=== PATIENT | female | born 1995 | race American Indian/Alaskan Native ===

== ENCOUNTER 2017-06-02 15:52 | Outpatient (CLI) | payer MEDICAID ==
[2017-06-02] MEDS ORDERED: LACTATED RINGERS 1,000 ML IV ONE (17:11)
[2017-06-02] MEDS ORDERED: LACTATED RINGERS 1,000 ML ONE (17:16)
--- NOTE | 2017-06-02 17:55 | Ultrasound Report ---
FINAL REPORT PROCEDURE: US OB LIMITED TECHNIQUE: Real-time transvaginal sonography of the placenta was performed. HISTORY: Abdominal trauma COMPARISON: No prior studies are available for comparison. FINDINGS: There is a single intrauterine gestation in cephalic presentation. Placenta is anterior and grade 1. No sonographic evidence of abruption is identified. Amniotic fluid index measures 9.7 centimeters. heart rate is 137 beats per minute. IMPRESSION: Unremarkable sonographic appearance of the placenta
[2017-06-02 18:33] VITALS: BP 99/55
[2017-06-02 21:01] LABS: Hematocrit 35.5 % (30.3-42.9); Mean Corpuscular HGB Conc 34 % (30-34); Mean Corpuscular Hemoglobin 31 pg (28-32); Mean Corpuscular Volume 93 fl (79-97); Platelet Count 228 K/mm3 (140-440); Red Blood Count 3.82 M/mm3 (3.65-5.03); Red Cell Distribution Width 14.3 % (13.2-15.2)
== END 2017-06-02 21:59 | disposition home or self-care (01) ==
LOC: TRG 15:52 → EEVIPCON 15:52 → LD 16:28 → TRG 21:59
PROVIDERS: ATTEND Obstetrics & Gynecology
DX: Z34.93 Encounter for supervision of normal pregnancy, unspecified, third trimester (principal); Z3A.34 34 weeks gestation of pregnancy
CPT/HCPCS: 36415; 59025; 76815; 85027; 86850; 86900; 86901; 96360; 96361; J7120

== ENCOUNTER 2017-07-06 13:07 | Outpatient (CLI) | payer MEDICAID ==
--- NOTE | 2017-07-06 13:57 | Event Note ---
Date: 07/06/17 patient c/o decreased fm and leaking water type fluid from vagina x 24h. Perineum completely dry, patient did not wear pad to office and clothing is dry. no fluid noted after patient coughed several times. SVE unchanged from office, bag noted. Will get BPP/RADHA and if normal may be d/c'd home to f/u in office with regular scheduled appointment Sunday.
--- NOTE | 2017-07-06 15:46 | Ultrasound Report ---
ULTRASOUND BIOPHYSICAL PROFILE: History: well being Technique: Transabdominal ultrasound with Doppler interrogation. 2 - breathing movements 2 - movements 2 - posture and tone 2 - Qualitative amniotic fluid volume 8 - TOTAL SCORE OF POSSIBLE 8 Heart Rate (bpm) 145
--- NOTE | 2017-07-06 15:46 | Ultrasound Report ---
ULTRASOUND OB LIMITED History: well being Technique: Transabdominal ultrasound with Doppler interrogation. Gestation: Single Position: Cephalic Amniotic Fluid: Normal RADHA = 10.3 cm Heart Rate: 132 BPM
== END 2017-07-06 15:10 | disposition home or self-care (01) ==
LOC: TRG 13:07
PROVIDERS: ATTEND Obstetrics & Gynecology
DX: O36.8130 Decreased fetal movements, third trimester, not applicable or unspecified (principal); O42.02 Full-term premature rupture of membranes, onset of labor within 24 hours of rupture; Z3A.39 39 weeks gestation of pregnancy
CPT/HCPCS: 59025; 76815; 76819

== ENCOUNTER 2017-07-06 23:32 | Inpatient (IN) | payer MEDICAID ==
[2017-07-07] MEDS ORDERED: LACTATED RINGERS 1,000 ML ONE (00:14)
[2017-07-07] MEDS ORDERED: PITOCin/NS 20 UNIT/1000ML DRIP 20,000 MILLIUNITS/1,000 ML BAG IV ONE (00:15)
[2017-07-07] MEDS ORDERED: XYLOCAINE 2% INFILTRATI ONE ×2 (00:15→00:55)
--- NOTE | 2017-07-07 00:50 | History and Physical Report ---
History of Present Illness Date of examination: 07/07/17 Date of admission: 07/06/17 23:55 Chief complaint: active labor, SROM @ 2200 History of present illness: EDC Confirmation: 07/09/2017 Past History : 1 Term Births: 0 Premature Births: 0 Living Children: 0 Para: 0 Mult. Births: 0 Prev : 0 Prev. attempt? 0 Aborta: 0 Elect. Ab: 0 Spont. Ab: 0 Ectopics: 0 Past Medical History: Reviewed history from 06/09/2016 and no changes required: NEG Negative Past Medical History Past Surgical History: Reviewed history from 06/09/2016 and no changes required: Negative Past Surgical History Family History Summary: Other family member - Has No Family History of Ovarvian Cancer - Entered On: Other family member - Has No Family History of Colon Cancer - Entered On: 2016 Other family member - Has No Family History of Breast Cancer - Entered On: 2016 Other family member - Has Family History of Hypertension - Entered On: 11/21/2016 Other family member - Has Family History of Diabetes - Entered On: 11/21/2016 Other family member - Has Family History of CVA or Stroke - Entered On: 2016 General Comments - FH: Neg Social History: Patient is single engaged to a 30 yo man [place] Smoking History: Patient currently smokes every day. Risk Factors: Smoked Tobacco Use: Current every day smoker Cigarettes: Yes -- 1/2 pack(s) per day, Year started: 2010 Counseled to quit/cut down: yes Drug use: yes Substance: marijuana HIV high-risk behavior: no Alcohol use: yes Drinks per day: social Dietary Counseling: pn yes Past Medical History Surgery (Non-study director): Negative Past Surgical History Abnormal PAP: negative CRISTIAN Exposure: negative Infertility: negative Uterine Anomaly: negative Uterine Surgery (not C/S): negative Social Hx: Patient is single engaged to a 30 yo man [place] Smoking History: Patient currently smokes every day. Infection History Hx of STD: chlamydia HIV Risk Eval: no Hepatitis B Risk Eval: low risk Personal hx. of genital herpes: no Partner hx. of genital herpes: no Genetic History Congenital Heart Defect: Mom: no Dad: no Magdalene Disease: Mom: no Dad: no Thalassemia Mom: no Dad: no Neural Tube Defect Mom: no Dad: no Down's Syndrome Mom: no Dad: no Esa-Sachs Mom: no Dad: no Sickle Cell Disease/Trait Mom: yes Dad: no Comments: uncle Hemophilia Mom: no Dad: no Muscular Dystrophy Mom: no Dad: no Cystic Fibrosis Mom: no Dad: no Mcdowell Chorea Mom: no Dad: no Mental Retardation Mom: no Dad: no Fragile X Mom: no Dad: no Other Genetic/Chromosomal Disorder Mom: no Dad: no Child w/other defect Mom: no Dad: no Enviromental Exposures Xray Exposure: no Medication, drug, or alcohol use since LMP: yes Chemical/Other Exposure: no Exposure to Cat Liter: no Active Medications (reviewed today): FORMULA 27-1 MG ORAL TABS ( VIT-FE FUMARATE-FA) 1 po q day as directed Current Allergies (reviewed today): No known allergies Past History Past Medical History: other (see HPI) Past Surgical History: other (see HPI) - Obstetrical History Expected Date of Delivery: 07/09/17 Actual Gestation: 39 Week(s) 5 Day(s) : 1 Para: 0 Hx # Term Pregnancies: 0 Number of Pregnancies: 0 Spontaneous Abortions: 0 Induced : 0 Number of Living Children: 0 Medications and Allergies Allergies Allergy/AdvReac Type Severity Reaction Status Date / Time No Known Allergies Allergy Verified 06/02/17 16:18 Review of Systems All systems: negative - Vital Signs Vital signs: Vital Signs Pulse BP 82 112/62 07/06/17 23:53 07/06/17 23:53 Temp Pulse Resp BP Pulse Ox 97.2 F L 115 H 14 127/80 07/07/17 00:30 07/07/17 00:30 07/07/17 00:30 07/07/17 00:30 - Physical Exam Breasts: Positive: normal Cardiovascular: Regular rate Lungs: Positive: Clear to auscultation, Normal air movement Abdomen: Positive: normal appearance, soft, normal bowel sounds Genitourinary (Female): Positive: normal external genitalia, normal perenium Vulva: both: normal Vagina: Positive: normal moisture Uterus: Positive: normal size, normal contour Anus/Rectum: Positive: normal perianal skin Extremities: Positive: normal - Obstetrical FHR: category 1 Uterine Contraction Monitor Mode: External Cervical Dilatation: 9.5 Cervical Effacement Percentage: 100 station: 0 Uterine Contraction Frequency (min): 2-3 Uterine Contraction Duration: 60 Uterine Contraction Pattern: Regular Uterine Tone Measurement Phase: Contraction Uterine Contraction Intensity: Strong/Firm Results All other labs normal. Assessment and Plan 21y/o @ 39+5 weeks, arrived to L&D in active labor. GBS negative. Admission orders in EMR. Anticipate - Patient Problems (1) 39 weeks gestation of Current Visit: Yes Status: Acute (2) Active labor at term Current Visit: Yes Status: Acute
[2017-07-07] MEDS ORDERED: MINERAL OIL PO PRN (00:55)
[2017-07-07] MEDS ORDERED: ePHEDrine SULFATE IV PRN (00:55)
[2017-07-07] MEDS ORDERED: BRETHINE SUB-Q PRN (00:55)
[2017-07-07] MEDS ORDERED: PITOCin/NS 20 UNIT/1000ML DRIP 20 UNITS/1,000 ML BAG IV SCH (01:00)
[2017-07-07 01:11] LABS: Hematocrit 39.6 % (30.3-42.9); Hemoglobin 13.4 gm/dl (10.1-14.3); Mean Corpuscular HGB Conc 34 % (30-34); Mean Corpuscular Hemoglobin 31 pg (28-32); Mean Corpuscular Volume 92 fl (79-97); Platelet Count 263 K/mm3 (140-440); Red Blood Count 4.31 M/mm3 (3.65-5.03); Red Cell Distribution Width 13.9 % (13.2-15.2)
[2017-07-07] MEDS ORDERED: SUBLIMAZE ONE (01:12)
[2017-07-07] MEDS ORDERED: SUBLIMAZE IV ONE (01:18)
[2017-07-07] MEDS: LACTATED RINGERS 1,000 ML IV SCH ×2 (01:29→02:18)
--- NOTE | 2017-07-07 03:01 | Anesthesia Consultation ---
Anesthesia Consult and Med Hx Date of service: 07/07/17 - Airway Anesthetic Teeth Evaluation: Good ROM Head & Neck: Adequate Mental/Hyoid Distance: Adequate Mallampati Class: Class I Intubation Access Assessment: Good - Pulmonary Exam CTA: Yes - Cardiac Exam Cardiac Exam: RRR - Pre-Operative Health Status ASA Pre-Surgery Classification: ASA1 Proposed Anesthetic Plan: Epidural (CSE), Spinal - Pulmonary Hx Asthma: No - Cardiovascular System Hx Hypertension: No - Central Nervous System Hx Seizures: No Hx Psychiatric Problems: No - Endocrine Hx Renal Disease: No Hx Hypothyroidism: No Hx Hyperthyroidism: No - Hematic Hx Anemia: No Hx Sickle Cell Disease: No - Other Systems Hx Alcohol Use: No
--- NOTE | 2017-07-07 03:02 | Anesthesia Day of Surgery ---
Anesthesia Day of Surgery - Day of Surgery Patient Examined: Yes Patient H&P Reviewed: Yes Patient is NPO: Yes
--- NOTE | 2017-07-07 03:51 | Procedure Note ---
OB Delivery Note - Delivery Date of Delivery: 07/07/17 ( male) Water Treatment Plant Engineer: ALL MCCOY Estimated blood loss: 200cc - Vaginal Delivery presentation: vertex Delivery position: OA Intrapartum events: none Delivery induction: none Delivery monitor: external FHT, external uterine Route of delivery: Delivery placenta: spontaneous Delivery cord: 3 umbilical vessels Episiotomy: none Delivery laceration: none Anesthesia: epidural Delivery comments: Male del over intact perineum, OA with a rotation to SUSIE. placed on mother's abd skin to skin, 3 vessel cord clamped and cut. cord blood collected. placenta del intact and completed. no lacerations to repair, fundus firm, bleeding scant. ELB 200, apgars 8/9, wt 7#0. Mother and baby remain LDR stable. - Infant A at 1 minute: 8 at 5 minutes: 9 Gender: Male (7#)
[2017-07-07] MEDS ORDERED: BENADRYL PO PRN (06:00)
[2017-07-07] MEDS ORDERED: DULCOLAX PR PRN (06:00)
[2017-07-07] MEDS ORDERED: LANSINOH TP PRN (06:00)
[2017-07-07] MEDS ORDERED: TUCKS PAD TP PRN (06:00)
[2017-07-07] MEDS ORDERED: ZOFRAN IV PRN (06:00)
[2017-07-07] MEDS ORDERED: MILK OF MAGNESIA PO PRN (06:00)
[2017-07-07] MEDS ORDERED: TYLENOL PO PRN (06:00)
[2017-07-07] MEDS ORDERED: PHENERGAN PO PRN (06:00)
[2017-07-07] MEDS ORDERED: PERCOCET 5/325 PO PRN (06:00)
[2017-07-07] MEDS ORDERED: SODIUM CHLORIDE FLUSH SYRINGE 10 ML IV PRN (06:00)
[2017-07-07] MEDS: MOTRIN PO SCH ×3 (07:01→18:23)
[2017-07-07] MEDS: PRENATAL VITAMIN PO SCH (11:00)
[2017-07-07] MEDS: COLACE PO SCH ×2 (11:00→22:47)
--- NOTE | 2017-07-07 11:18 | Event Note ---
Date: 07/07/17 stable pp, VSS, mod lochia G1. O pos, GBS neg
[2017-07-07 17:05] LABS: Hematocrit 36.7 % (30.3-42.9); Hemoglobin 12.5 gm/dl (10.1-14.3)
[2017-07-08] MEDS: MOTRIN PO SCH ×3 (05:53→09:57)
[2017-07-08] MEDS ORDERED: BOOSTRIX IM ONE (06:00)
[2017-07-08] MEDS: COLACE PO SCH (09:57)
[2017-07-08] MEDS: PRENATAL VITAMIN PO SCH (10:13)
--- NOTE | 2017-07-08 12:06 | Discharge Summary ---
Providers - Providers Date of Admission: 07/06/17 23:55 Date of discharge: 07/08/17 Attending physician: JESUS ULLOA 07/07/17 06:00 Consult to Pet Sitter [CONS] Routine Reason For Exam: assistance with , SNS Primary care physician: JESUS ULLOA Hospitalization Reason for admission: active labor Delivery: Episiotomy: none Laceration: none Other procedures: none complications: none Discharge diagnosis: IUP at term delivered [place] baby: male Pertinent studies: Discharge hematocrit 36. Maternal blood type O positive Hospital course: It well . Bottle feeding Condition at discharge: Good Disposition: DC-01 TO HOME OR SELFCARE - Discharge Diagnoses (1) (normal spontaneous vaginal delivery) Status: Acute (2) 39 weeks gestation of Status: Acute Plan - Discharge Medications Prescriptions: Ibuprofen [Motrin 800 MG tab] 800 mg PO Q8HR PRN #30 tablet PRN Reason: Pain Lidocain2.5%/Prilocai2.5% [Emla] 5 gm TP ONCE PRN #1 tube PRN Reason: Pain - Provider Discharge Summary Activity: routine, no sex for 6 weeks, no heavy lifting 4 weeks, no strenuous exercise Diet: routine Instructions: routine Additional instructions: [] Smoking cessation referral if applicable(refer to patient education folder for contact #) [] Refer to [facility]'s [facility] Booklet Call your doctor immediately for: * Fever > 100.5 * Heavy vaginal bleeding ( >1 pad per hour) * Severe persistent headache * Shortness of breath * Reddened, hot, painful area to leg or breast * Drainage or odor from incision. * Keep incision clean and dry at all times and follow doctor's instructions regarding bathing/showering - Follow up plan Follow up: JESUS ULLOA MD [Primary Care Provider] - 7 Days
[2017-07-08 15:50] VITALS: BP 116/83
== END 2017-07-08 16:10 | disposition home or self-care (01) | DRG 775 ==
LOC: TRG 23:32 → LD 23:55 → OB 07-07 05:38
PROVIDERS: ADMIT Obstetrics & Gynecology; ATTEND Obstetrics & Gynecology
PROC: 10E0XZZ Delivery of Products of Conception, External Approach (ICD-10-PCS; principal; 2017-07-07)
PROC: 3E0R3BZ Introduction of Anesthetic Agent into Spinal Canal, Percutaneous Approach (ICD-10-PCS; 2017-07-07)
PROC: 00HU33Z Insertion of Infusion Device into Spinal Canal, Percutaneous Approach (ICD-10-PCS; 2017-07-07)
DX: O99.334 Smoking (tobacco) complicating childbirth (principal); F17.210 Nicotine dependence, cigarettes, uncomplicated; Z3A.39 39 weeks gestation of pregnancy; Z37.0 Single live birth
CPT/HCPCS: 36415; 85014; 85018; 85027; 86592; 86850; 86900; 86901; J2590; J3010; J7120

== ENCOUNTER 2019-08-22 11:46 | Outpatient (CLI) | payer OTHER ==
--- NOTE | 2019-08-22 12:38 | Event Note ---
Date: 08/22/19 (I'm bleeding) 23 y.o. @ 35 wks with c/o vaginal bleeding for the last week in a half. Denies any sexual intercourse. Ultrasound ordered for placental location, which was reported at posterior and fundal. Exam revealed pinkish to brown discharge on exam glove. Cervical exam cl/th/hi. monitor strip at this time is category 1 with no ctxs noted. Explained this findings to the patient and that at this time no concern for labor. Reviewed with pt s/sx of labor and when to come back to triage for evaluation. Pt continues to deny ctxs, LOF. These finding were relayed to Dr. Godinez. Pt to be discharged home with strict labor precautions and follow up in office.
[2019-08-22 13:09] LABS: Bacteria,Urine 1+ /HPF (Negative); Bilirubin,Urine NEG (Negative); Blood,Urine MOD (Negative); Color,Urine Yellow (Yellow); Mucus,Urine FEW /HPF; Protein,Urine <15 mg/dL mg/dL (Negative); Urobilinogen,Urine < 2.0 mg/dL (<2.0)
[2019-08-22 13:37] VITALS: BP 111/63
--- NOTE | 2019-08-22 15:19 | Ultrasound Report ---
US OB LIMITED INDICATION / CLINICAL INFORMATION: Placental location and RADHA. COMPARISON: None available. FINDINGS: There is a single intrauterine . presentation is cephalic. The heart rate is 131 bpm. The placenta is located in the posterior fundus, is grade 2 and is free of the os. Amniotic flu id volume is normal with an RADHA of 8.7 cm and the largest pocket measuring 3.5 cm. Signer Name: Umberto Landin MD Signed: 08/22/2019 3:15 PM Workstation Name: [id number]
== END 2019-08-22 14:25 | disposition home or self-care (01) ==
LOC: APU 11:46 → TRG 11:46
PROVIDERS: ATTEND Obstetrics & Gynecology
DX: O46.8X3 Other antepartum hemorrhage, third trimester (principal); Z3A.35 35 weeks gestation of pregnancy
CPT/HCPCS: 59025; 76815; 81001; 87086

== ENCOUNTER 2019-09-21 07:58 | Outpatient (CLI) | payer OTHER ==
[2019-09-21 08:19] VITALS: BP 115/60
[2019-09-21] MEDS ORDERED: LACTATED RINGERS 1,000 ML IV ONE (08:30)
[2019-09-21] MEDS ORDERED: LACTATED RINGERS 1,000 ML ONE (08:31)
[2019-09-21 09:16] LABS: Basophils % (Auto) 0.6 % (0.0-1.8); Eosinophils # (Auto) 0.1 K/mm3 (0.0-0.4); Eosinophils % (Auto) 1.8 % (0.0-4.3); Hematocrit 31.4 % (30.3-42.9); Hemoglobin 10.3 gm/dl (10.1-14.3); Lymphocytes # (Auto) 1.7 K/mm3 (1.2-5.4); Lymphocytes % (Auto) 25.5 % (13.4-35.0); Mean Corpuscular HGB Conc 33 % (30-34); Mean Corpuscular Volume 90 fl (79-97); Monocytes # (Auto) 0.7 K/mm3 (0.0-0.8); Monocytes % (Auto) 10.2 % (0.0-7.3); Platelet Count 271 K/mm3 (140-440); Red Blood Count 3.49 M/mm3 (3.65-5.03); Red Cell Distribution Width 15.1 % (13.2-15.2)
--- NOTE | 2019-09-21 09:53 | Event Note ---
Date: 09/21/19 (r/o SROM) Pt is a 23 y.o. @ 39+ weeks with c/o SROM @ 0700. States that the fluid was clear. During triage evaluation no further LOF noted. Denies vag bleeding, ctxs. Exam revealed no pooling, nitrazine negative. RADHA WNL, vertex presentation. Explained these findings to the patient. Pt states that she did "leak a little before my water actually broke with my last ". Strict labor precautions given to patient. She was discharged home from triage in stable condition. Category 1 heart rate tracing with irregular ctxs noted on monitor.
--- NOTE | 2019-09-21 10:01 | Ultrasound Report ---
Limited obstetrical ultrasound INDICATION: , evaluation of presentation and fluid volume Well-developed term intrauterine is seen. Fetus is in a cephalic position. cardiac ex tremity was documented with heart rate of 137 bpm. Amniotic fluid volume was assessed with an A FI of the lower end of the normal range at 7.0 cm. The center was not evaluated but is not visualize near the internal cervical os. No other assessment was made. Signer Name: Deepak Perez MD Signed: 09/21/2019 9:57 AM Workstation Name: [id number]
== END 2019-09-21 10:17 | disposition home or self-care (01) ==
LOC: TRG 07:58 → APU 08:00 → TRG 10:17
PROVIDERS: ATTEND Obstetrics & Gynecology
DX: O42.913 Preterm premature rupture of membranes, unspecified as to length of time between rupture and onset of labor, third trimester (principal); Z3A.39 39 weeks gestation of pregnancy
CPT/HCPCS: 36415; 59025; 76815; 85025; 86592; 86850; 86900; 86901; J7120